=== PATIENT | female | born 2000 | race Caucasian/White ===

== ENCOUNTER 2019-12-15 23:54 | Emergency (ER) | payer OTHER ==
[~2019-12-15] VITALS: Ht 162.6 cm; Wt 44.0 kg
[2019-12-16 00:08] VITALS: Ht 162.6 cm; Wt 44.0 kg
[2019-12-16 03:05] VITALS: BP 113/75
== END 2019-12-16 03:05 | disposition home or self-care (01) ==
LOC: ED 23:54
DX: N76.0 Acute vaginitis (principal); N39.0 Urinary tract infection, site not specified
CPT/HCPCS: 87491; 87591